=== PATIENT | female | born 1935 | race Caucasian/White ===

== ENCOUNTER → 2017-05-29 | Outpatient (CLI) | payer MEDICARE, MEDICAID ==
--- NOTE | 2017-05-29 19:59 | Diagnostic Imaging Report ---
Bilateral diagnostic mammogram. The current study was also evaluated with a Computer Aided Detection (CAD) system. Comparison with 05/09/16. INDICATION: History of breast cancer status post lumpectomy in the left breast FINDINGS: The breasts are composed of heterogeneously dense parenchyma which may decrease mammographic sensitivity. There are benign-appearing and vascular calcifications seen. Post therapeutic changes in the left breast are seen with scarring similar to prior exams. Allowing for technique and positional differences, no suspicious change is seen. IMPRESSION: No significant change. ACR BI-RADS Category 2: Benign findings. Result letter will be mailed to the patient. Note: At least 10% of breast cancer is not imaged by mammography. Dictated by: Dictated on workstation # [id number]
== END ==
LOC: RAD 08:32
PROVIDERS: ATTEND Internal Medicine Hematology & Oncology
DX: Z85.3 Personal history of malignant neoplasm of breast (principal); Z98.890 Other specified postprocedural states
CPT/HCPCS: 77066

== ENCOUNTER 2017-07-16 11:40 | Emergency (ER) | payer MEDICARE, MEDICAID ==
[~2017-07-16] VITALS: Ht 149.9 cm; Wt 68.0 kg
--- OUTSIDE RECORDS SUMMARY | 2017-07-16 12:25 | XMS REPORT | Continuity of Care Document ---
Author Author [facility] Organization [facility] Address Unknown Phone Unavailable Allergies Medications Problems Date Dx Coded Attending Type Code Diagnosis Diagnosed By 05/09/2016 EDITH FONSECA MD Ot Z85.3 PERSONAL HISTORY OF MALIGNANT NEOPLASM O 05/12/2016 EDITH FONSECA MD Ot Z08 ENCNTR FOR FOLLOW-UP EXAM AFTER TRTMT FO 05/12/2016 EDITH FONSECA MD Ot Z85.3 PERSONAL HISTORY OF MALIGNANT NEOPLASM O 05/13/2016 EDITH FONSECA MD Ot Z08 ENCNTR FOR FOLLOW-UP EXAM AFTER TRTMT FO 05/13/2016 EDITH FONSECA MD Ot Z85.3 PERSONAL HISTORY OF MALIGNANT NEOPLASM O 05/29/2016 EDITH FONSECA MD Ot Z08 ENCNTR FOR FOLLOW-UP EXAM AFTER TRTMT FO 05/29/2016 EDITH FONSECA MD Ot Z85.3 PERSONAL HISTORY OF MALIGNANT NEOPLASM O 06/06/2016 EDITH FONSECA MD E Ot Z08 ENCNTR FOR FOLLOW-UP EXAM AFTER TRTMT FO 06/06/2016 EDITH FONSECA MD Ot Z85.3 PERSONAL HISTORY OF MALIGNANT NEOPLASM O 05/29/2017 Ot 793.82 INCONCLUSIVE MAMMOGRAM 05/29/2017 Ot V10.3 HX OF BREAST MALIGNANCY 05/29/2017 Ot V76.11 SCRN MAMMO-HIGH RISK PT, MALIGNANT NEOPL 05/29/2017 EDITH FONSECA MD Ot V10.3 HX OF BREAST MALIGNANCY 05/29/2017 EDITH FONSECA MD E Ot V76.11 SCRN MAMMO-HIGH RISK PT, MALIGNANT NEOPL 05/29/2017 EDITH FONSECA MD E Ot Z08 ENCNTR FOR FOLLOW-UP EXAM AFTER TRTMT FO 05/29/2017 EDITH FONSECA MD Ot Z85.3 PERSONAL HISTORY OF MALIGNANT NEOPLASM O 05/29/2017 EDITH FONSECA MD Ot Z85.3 PERSONAL HISTORY OF MALIGNANT NEOPLASM O 05/29/2017 EDITH FONSECA MD Ot Z85.3 PERSONAL HISTORY OF MALIGNANT NEOPLASM O 05/29/2017 EDITH FONSECA MD Ot Z85.3 PERSONAL HISTORY OF MALIGNANT NEOPLASM O 06/19/2017 EDITH FONSECA MD Ot Z85.3 PERSONAL HISTORY OF MALIGNANT NEOPLASM O 06/19/2017 EDITH FONSECA MD Ot Z98.890 OTHER SPECIFIED POSTPROCEDURAL STATES 07/01/2017 EDITH FONSECA MD, Ot Z85.3 PERSONAL HISTORY OF MALIGNANT NEOPLASM O 07/01/2017 EDITH FONSECA MD Ot Z98.890 OTHER SPECIFIED POSTPROCEDURAL STATES Procedures Results Encounters ACCT No. Visit Date/Time Discharge Status Pt. Type Provider Facility Loc./Unit Complaint [id number] 03/23/2014 10:09:00 2013 23:59:59 CLS Outpatient EDITH FONSECA MD [facility] RAD SCREENING [id number] 05/29/2017 08:32:00 ACT Outpatient EDITH FONSECA MD [facility] RAD HX OF BREAST CA Z85.3 [id number] 05/09/2016 09:06:00 ACT Outpatient EDITH FONSECA MD [facility] RAD HX OF BREAST CANCER [id number] 03/15/2013 10:05:00 Document Registration
[2017-07-16 13:09] LABS: BASOPHILS # (AUTO) 0.1 10^3/uL (0.0-0.1); BASOPHILS % (AUTO) 1 % (0-10); EOSINOPHILS # (AUTO) 0.5 10^3/uL (0.0-0.3); EOSINOPHILS % (AUTO) 5 % (0-10); LYMPHOCYTES # (AUTO) 1.6 X 10^3 (1.0-4.0); LYMPHOCYTES % (AUTO) 17 % (12-44); MEAN CORPUSCULAR HEMOGLOBIN 31 PG (25-34); MEAN CORPUSCULAR HGB CONC 34 G/DL (32-36); MEAN CORPUSCULAR VOLUME 91 FL (80-99); MEAN PLATELET VOLUME 11.2 FL (7.4-10.4); MONOCYTES # (AUTO) 0.8 X 10^3 (0.0-1.0); MONOCYTES % (AUTO) 9 % (0-12); NEUTROPHILS # (AUTO) 6.4 X 10^3 (1.8-7.8); NEUTROPHILS % (AUTO) 69 % (42-75); PLATELET COUNT 256 10^3/uL (130-400); RED BLOOD COUNT 4.82 10^6/uL (4.35-5.85); RED CELL DISTRIBUTION WIDTH 12.5 % (10.0-14.5); WHITE BLOOD COUNT 9.3 10^3/uL (4.3-11.0)
[2017-07-16 13:23] LABS: ALANINE AMINOTRANSFERASE 30 U/L (0-55); ALBUMIN 3.9 GM/DL (3.2-4.5); ANION GAP 10 MMOL/L (5-14); ASPARTATE AMINO TRANSFERASE 32 U/L (5-34); BILIRUBIN,TOTAL 0.4 MG/DL (0.1-1.0); BLOOD UREA NITROGEN 10 MG/DL (7-18); BUN/CREATININE RATIO 12; CALCIUM 9.4 MG/DL (8.5-10.1); CARBON DIOXIDE 27 MMOL/L (21-32); CHLORIDE 105 MMOL/L (98-107); CREATININE SERUM 0.83 MG/DL (0.60-1.30); GFR ESTIMATED > 60; GLUCOSE 102 MG/DL (70-105); POTASSIUM 4.4 MMOL/L (3.6-5.0); SODIUM 142 MMOL/L (135-145); TOTAL PROTEIN 6.6 GM/DL (6.4-8.2)
[2017-07-16 13:26] LABS: BILIRUBIN,URINE NEGATIVE (NEGATIVE); KETONES,URINE NEGATIVE (NEGATIVE); LEUKOCYTE ESTERASE ,URINE NEGATIVE (NEGATIVE); NITRITE,URINE NEGATIVE (NEGATIVE); PH,URINE 7 (5-9); PROTEIN,URINE NEGATIVE (NEGATIVE); UROBILINOGEN,URINE NORMAL (NORMAL)
--- NOTE | 2017-07-16 13:45 | ED Neurological Problem ---
General Chief Complaint: Neurological Problems Stated Complaint: L SIDED WEAKNESS Nursing Triage Note: TO ED PER [facility] FROM HOME PMH OF CVA L SIDE. PATIENT REPORTS SHE WOKE UP YESTERDAY AM AND FELT LIKE SHE HAD INCREASE WEAKNESS ON L SIDE. Nursing Sepsis Screen: No Definite Risk Source: patient, family Exam Limitations: no limitations History of Present Illness Time seen by provider: 13:25 Initial Comments The patient is an 82-year-old white female brought to the emergency room by her granddaughter. The patient reports that she had had a stroke with left-sided involvement some 17-20 years ago. She recovered in a way that allowed her to function independently. She states that she awakened yesterday morning and seemed to have difficulty using her left side. Her granddaughter reports that on Thursday the day prior she had taken her to her yearly cardiology appointment with Dr. Yaa Wallace. She complained of considerable fatigue. On the way home they stopped at a [employer] restaurant in [place] and she observed her to appear to demonstrate difficulty greater than her usual on the left side plus greater fatigability. Yesterday this was clearly evident. There is been no speech abnormality. She is right-handed. Timing/Duration: other (2 days) Severity: mild, moderate Associated Symptoms: weakness Allergies and Home Medications Allergies Coded Allergies: No Known Drug Allergies (Unverified , 07/16/17) Constitutional: see HPI Eyes: No Symptoms Reported Ears, Nose, Mouth, Throat: no symptoms reported Respiratory: no symptoms reported Cardiovascular: no symptoms reported Gastrointestinal: no symptoms reported Genitourinary: no symptoms reported Musculoskeletal: muscle weakness (left-sided) Skin: no symptoms reported Psychiatric/Neurological: No Symptoms Reported Endocrine: No Symptoms Reported Hematologic/Lymphatic: No Symptoms Reported Past Fsyvejn-Uwotcv-Rlsafy Hx Patient Social History Alcohol Use: Denies Use Recreational Drug Use: No Smoking Status: Never a Smoker Recent Foreign Travel: No Contact w/Someone Who Travel: No Recent Infectious Disease Expo: No Surgeries Surgeries: Appendectomy, Breast, Gallbladder, Hysterectomy Respiratory Respiratory Disorders: COPD Cardiovascular Cardiac Disorders: High Cholesterol, Hypertension Neurological Neurological Disorders: Stroke Reproductive System [employer] History: Hysterectomy Genitourinary Genitourinary Disorders: UTI-Chronic Musculoskeletal Musculoskeletal Disorders: Arthritis, Chronic Back Pain Endocrine Endocrine Disorders: Diabetes, Non-Insulin dep HEENT HEENT Disorders: Macular Degeneration Cancer Cancer: Breast Psychosocial Behavioral Health Disorders: Anxiety Physical Exam Vital Signs Vital Sign - Last 12Hours 07/16/17 11:40 Temp 98.0 Pulse 51 Resp 18 B/P (MAP) 192/72 Pulse Ox 95 O2 Delivery Room Air Capillary Refill : Less Than 3 Seconds General Appearance: WD/WN, no apparent distress HEENT: normal ENT inspection Neck: full range of motion Respiratory: chest non-tender, lungs clear, normal breath sounds, no respiratory distress, no accessory muscle use, respiratory distress Cardiovascular: bradycardia, systolic murmur (left sternal border grade 2) Gastrointestinal: normal bowel sounds, non tender, soft, no organomegaly, no pulsatile mass Back: normal inspection, no CVA tenderness, no vertebral tenderness, CVA tenderness (R), CVA tenderness (L) Neurologic/Psychiatric: chiller hand II-XII nml as tested, alert, normal mood/affect, oriented x 3 Coordination/Gait: normal finger to nose (right) Skin: normal color, warm/dry Lymphatic: no adenopathy Comments The patient exhibited normal speech. There was no facial droop. She was able to furrow the brow equally and bilaterally. She was able to blink bilaterally. Foreign Language Professor in the right hand was 2+. Foreign Language Professor in the left was quite minimal. Straight leg lift on the right was normal. She was able to lift the right leg to 60 off the bed easily. She was able to lift the left leg off the bed 10 inches and with difficulty. She appeared to carry the left in external rotation but was able to rotate it medially on command. Progress/Results/Core Measures Results/Orders Lab Results Laboratory Tests Test 07/16/17 11:54 07/16/17 12:39 Range/Units White Blood Count 9.3 4.3-11.0 10^3/uL Red Blood Count 4.82 4.35-5.85 10^6/uL Hemoglobin 14.8 11.5-16.0 G/DL Hematocrit 44 35-52 % Mean Corpuscular Volume 91 80-99 FL Mean Corpuscular Hemoglobin 31 25-34 PG Mean Corpuscular Hemoglobin Concent 34 32-36 G/DL Red Cell Distribution Width 12.5 10.0-14.5 % Platelet Count 256 130-400 10^3/uL Mean Platelet Volume 11.2 H 7.4-10.4 FL Neutrophils (%) (Auto) 69 42-75 % Lymphocytes (%) (Auto) 17 12-44 % Monocytes (%) (Auto) 9 0-12 % Eosinophils (%) (Auto) 5 0-10 % Basophils (%) (Auto) 1 0-10 % Neutrophils # (Auto) 6.4 1.8-7.8 X 10^3 Lymphocytes # (Auto) 1.6 1.0-4.0 X 10^3 Monocytes # (Auto) 0.8 0.0-1.0 X 10^3 Eosinophils # (Auto) 0.5 H 0.0-0.3 10^3/uL Basophils # (Auto) 0.1 0.0-0.1 10^3/uL Sodium Level 142 135-145 MMOL/L Potassium Level 4.4 3.6-5.0 MMOL/L Chloride Level 105 98-107 MMOL/L Carbon Dioxide Level 27 21-32 MMOL/L Anion Gap 10 5-14 MMOL/L Blood Urea Nitrogen 10 7-18 MG/DL Creatinine 0.83 0.60-1.30 MG/DL Estimat Glomerular Filtration Rate > 60 BUN/Creatinine Ratio 12 Glucose Level 102 70-105 MG/DL Calcium Level 9.4 8.5-10.1 MG/DL Total Bilirubin 0.4 0.1-1.0 MG/DL Aspartate Amino Transf (AST/SGOT) 32 5-34 U/L Alanine Aminotransferase (ALT/SGPT) 30 0-55 U/L Alkaline Phosphatase 68 40-136 U/L Total Protein 6.6 6.4-8.2 GM/DL Albumin 3.9 3.2-4.5 GM/DL Urine Color YELLOW Urine Clarity SLIGHTLY CLOUDY Urine pH 7 5-9 Urine Specific [place] 1.010 L 1.016-1.022 Urine Protein NEGATIVE NEGATIVE Urine Glucose (UA) NEGATIVE NEGATIVE Urine Ketones NEGATIVE NEGATIVE Urine Nitrite NEGATIVE NEGATIVE Urine Bilirubin NEGATIVE NEGATIVE Urine Urobilinogen NORMAL NORMAL MG/DL Urine Leukocyte Esterase NEGATIVE NEGATIVE Urine RBC (Auto) NEGATIVE NEGATIVE Urine RBC NONE /HPF Urine WBC NONE /HPF Urine Squamous Epithelial Cells 2-5 /HPF Urine Crystals NONE /LPF Urine Bacteria NEGATIVE /HPF Urine Casts NONE /LPF Urine Mucus NEGATIVE /LPF Urine Culture Indicated NO My Orders Orders - TOÑO JOHNSON MD Cbc With Automated Diff (07/16/17 13:02) Comprehensive Metabolic Panel (07/16/17 13:02) Ua Culture If Indicated (07/16/17 13:02) Ct Head Wo (07/16/17 13:22) Mri Brain W/Wo Contrast (07/16/17 14:25) Gadobutrol Inj (Radiology) (Gadavist Inj (07/16/17 15:15) Medications Given in ED Current Medications Medications Dose Ordered Sig/Bradford Route Start Time Stop Time Status Last Admin Dose Admin Gadobutrol 7.5 mmol ONCE ONCE IV 07/16/17 15:15 07/16/17 15:16 DC 07/16/17 15:18 6 MMOL Vital Signs/I&O Vital Sign - Last 12Hours 07/16/17 11:40 Temp 98.0 Pulse 51 Resp 18 B/P (MAP) 192/72 Pulse Ox 95 O2 Delivery Room Air Blood Pressure Mean: 112 Departure Impression Impression: Primary Impression: increased left-sided weakness/old CVA in this distribution Disposition: 01 HOME, SELF-CARE Condition: Stable/Unchanged Departure-Patient Inst. Decision time for Depature: 16:02 Referrals: NO,LOCAL PHYSICIAN (PCP) Primary Care Physician JADEN ALANIS (Family) Primary Care Physician Patient Instructions: Stroke (DC) Add. Discharge Instructions: All discharge instructions reviewed with patient and/or family. Voiced understanding. Your x-ray studies showed year old stroke. There was a possibility of a very small abnormality in the same distribution which appeared new. These findings were discussed with the patient and her granddaughter. It would appear reasonable that a course of outpatient physical therapy might be of benefit here. They are agreeable and transportation could be arranged by the family TOÑO JOHNSON MD Jul 16, 2017 13:44
--- NOTE | 2017-07-16 13:48 | Diagnostic Imaging Report ---
PROCEDURE: CT head without contrast. TECHNIQUE: Multiple contiguous axial images were obtained through the brain without the use of intravenous contrast. INDICATION: Dizziness, left-sided weakness. I have no previous. Patient reports a remote stroke. FINDINGS: There is an old infarct in the right basal ganglia with focal encephalomalacia. There is chronic periventricular white matter small-vessel sequelae and chronic cerebrocortical atrophy. There was no sulcal effacement and no findings suggestive of CT evidence of focal or generalized edema. No evidence for elevated intracranial pressures and there is no hemorrhage. Orbits, sinuses, and calvarium nonacute. IMPRESSION: Old right basal ganglial infarct, chronic white matter small-vessel sequelae, and atrophy. No hemorrhage or acute-appearing abnormality. In light of the extent of chronic findings, if there is persistent clinical suspicion for an acute or an evolving infarct, consider CT short-term followup versus correlative MRI depending upon the index of suspicion. Again an acute-appearing abnormality is not appreciable at this exam with no priors for comparison. Dictated by: Dictated on workstation # [id number]
[2017-07-16] MEDS ORDERED: GADOBUTROL 7.5 MMOL/7.5 ML (GADAVIST) VIAL IV ONE (15:15)
--- NOTE | 2017-07-16 16:03 | Diagnostic Imaging Report ---
CLINICAL INDICATION: Patient has left side of weakness since Thursday and does have a history of an old stroke. EXAM: MRI of the brain performed without and with 6 cc of Gadavist IV contrast. Sequences include axial DWI, ADC map, coronal gradient echo, axial T2, axial FLAIR, axial T1, axial T1 post IV contrast, coronal T1 fat-sat post IV contrast, and sagittal T1 post IV contrast. COMPARISON: Head CT without contrast dated 07/16/2017. FINDINGS: There is a 12 mm x 4 mm linear area of elevated DWI signal and hypointense and isointense ADC map signal with minimal high T2 signal seen in the right side of the raheem. There is no associated enhancement in the region. This may represent area of acute cerebral infarct versus artifact. There is no other areas concerning for acute cerebral infarct. There is a small chronic infarct involving the right basal ganglia region and thomas radiata. There is focal, patchy and confluent areas of high T2 signal white matter changes throughout both cerebral hemispheres, periventricular regions, and raheem, likely related to chronic small vessel ischemic disease and leukoaraiosis. There is no abnormal IV contrast enhancement seen on this exam. There is no hydrocephalus, intracranial hemorrhage, or brain herniation. There is loss of flow void signal and increased T2 signal within the intradural portion of the right vertebral artery. Vascular occlusion or slow flow may be considered. The brain parenchymal volume appears appropriate for patient's age. Basal cisterns are unremarkable. The extracranial soft tissue, skull, and orbits are unremarkable. There is mild to moderate mucosal thickening in the ethmoid sinus. There is mild mucosal thickening involving frontal sinus, both maxillary sinuses, and sphenoid sinus. IMPRESSION: 1: There is a small area of elevated DWI signal and mixed ADC map signal in the right side of the raheem. There is minimal high T2 signal in the region. There is no associated IV contrast enhancement. This finding may represent an acute or early subacute infarct. Other consideration would include artifact. Followup MRI of the brain with and without IV contrast in two months is suggested to evaluate for interval evolution of this finding. 2: There is abnormal signal with no flow void involving the intradural right vertebral artery. Atherosclerotic disease versus vascular occlusion or slow flow within the right vertebral artery could be considered. Comparison with prior MRI of the brain would help better evaluate. If none are available, then CT angiogram of the head and neck would help better evaluate. 3: Otherwise, there is no other concern for acute intracranial process. 4: There is chronic cerebral infarct in the right basal ganglia/thomas radiata region. 5: There is diffuse chronic small vessel ischemic disease and leukoaraiosis. Results of this report was discussed with Dr. Olu Walker via the telephone on 07/16/2017 at 1550 hours. Dictated by: Dictated on workstation # [id number]
[2017-07-16 16:24] VITALS: BP 164/69
== END 2017-07-16 16:28 | disposition home or self-care (01) ==
LOC: EDUNIT# 11:40 → ER 11:41
DX: I69.954 Hemiplegia and hemiparesis following unspecified cerebrovascular disease affecting left non-dominant side (principal); I10 Essential (primary) hypertension; E11.9 Type 2 diabetes mellitus without complications; J44.9 Chronic obstructive pulmonary disease, unspecified
CPT/HCPCS: 36415; 70450; 70553; 80053; 81000; 85025

== ENCOUNTER → 2017-07-27 | Outpatient (CLI) | payer MEDICARE, MEDICAID ==
--- NOTE | 2017-07-27 12:14 | Diagnostic Imaging Report ---
INDICATION: Dysphagia. The procedure was performed in conjunction with a member of the department of speech pathology. Patient swallowed thin and thick barium and semisolid and solid foods mixed with barium paste. Study was recorded on videotape. FINDINGS: There is aspiration of honey consistency barium. This improved with chin tuck maneuvers. Thicker barium was swallowed with slightly better success. IMPRESSION: Aspiration on several swallows with honey consistency barium. This did improve with chin tuck. Please correlate with formal speech pathology report. Dictated by: Dictated on workstation # [id number]
== END ==
LOC: RAD 08:30
PROVIDERS: ATTEND Physician Assistant Medical
DX: R13.12 Dysphagia, oropharyngeal phase (principal); R47.9 Unspecified speech disturbances
CPT/HCPCS: 74230

== ENCOUNTER → 2017-07-31 | Outpatient (CLI) | payer MEDICARE, MEDICAID ==
[~2017-07-31] MED LIST: CATHETER FLUSH 10 ML SYR IV PRN; IOHEXOL 350 MG/ML 100 ML (OMNIPAQUE 350) VIAL IV ONE; NS 100 ML (IVPB) BAG IV ONE
--- NOTE | 2017-07-31 10:50 | Diagnostic Imaging Report ---
Clinical indication: Patient with questionable stroke. Patient has left arm and leg paralysis. Exams: 1: Head CT without and with IV contrast. 2: CT angiogram of the head and neck performed with 100 cc of Omnipaque 350 IV contrast. Sagittal and coronal MIP reformations were created for better visualization of vascular anatomy. Comparison: MRI of the brain performed without and with IV contrast and head CT without contrast dated 07/16/2017. Findings: HEAD CT: Skull streak artifact obscures portions of the brainstem, posterior fossa, portions of the brain and skull base. The previously seen area concerning for acute or early subacute infarct involving the right side of the raheem cannot be seen on this exam due to streak artifact. There is no abnormal IV contrast enhancement. There are stable small chronic cerebral infarcts involving the right basal ganglia region, and right internal capsule region. There is stable patchy and confluent areas of low-attenuation white matter changes throughout both cerebral hemispheres, likely related to chronic small vessel ischemic disease and leukoaraiosis (right side more than the left). There is no evidence of acute intracranial hemorrhage, brain herniation, or hydrocephalus. Basal cisterns are unremarkable. There is no hydrocephalus. The brain parenchymal volume stable and appropriate for patient's age. Extracranial soft tissue, skull, and orbits are unremarkable. There is at least moderate mucosal thickening in the ethmoid sinus. There is a small air-fluid level and mucosal thickening in the left maxillary sinus. Temporal bone structures show no significant abnormality. CT ANGIOGRAM: Of note, the aortic arch is not imaged on this exam and cannot be evaluated. The origins and proximal aspects of the right brachiocephalic artery, left common carotid artery, and left subclavian artery are not visualized and cannot be evaluated. There is atherosclerotic disease within the proximal left subclavian artery causing mild stenosis. There is incompletely imaged atherosclerotic disease involving the proximal aspect of the left common carotid artery which shows mild stenosis. There is atherosclerotic disease of the left ICA bulb and left ECA which shows no significant stenosis. Remainder of the cervical left ICA is patent. The visualized portion of the right brachiocephalic artery is patent. The right subclavian artery is patent. The right common carotid artery shows atherosclerotic disease distally with less than 50% stenosis. There is dense atherosclerotic disease involving the origin of the right ECA which shows less than 50% stenosis. There is roughly 50-60% stenosis involving the origin of the cervical right ICA. Remainder of the cervical right ICA and right ECA regions are patent. There is atherosclerotic disease of the origin of the cervical right vertebral artery which obscures the region. There is at least mild narrowing in the region. The remainder of the cervical right vertebral artery is patent. The cervical left vertebral artery is patent. Relatively dominant left cervical vertebral artery is seen. There is atherosclerotic disease and vascular irregularity involving the intradural left vertebral artery with roughly 50-60% stenosis. There is concern for occlusion of the post PICA intradural right vertebral artery. There is a small contrast opacified vascular stump in the region of the proximal basilar which is seen on series 7, image 21, and series 11, image 167. This is suspected to represent retrograde flow within the occluded post PICA intradural right vertebral artery. There is normal appearing contrast within the intradural pre-PICA vertebral artery. The bilateral PICA are patent. The remainder of the posterior circulation is patent. There is atherosclerotic disease involving the bilateral cavernous carotid arteries. There is at least moderate narrowing in the paraclinoid left ICA region. There is at least moderate stenosis involving the cavernous portion of the right ICA. The remainder of the anterior circulation of the the [place] is patent. The ACAs and bilateral MCAs are patent. Visualized portion of the dural venous sinuses are patent and unremarkable. There is a 10 mm low-density nodule within the left thyroid gland. The visualized upper lung lawrence are clear. The remainder of the neck soft tissue structures are unremarkable. There is no significant lymphadenopathy. IMPRESSION: 1: Of note, the aortic arch and proximal great vessels are not imaged and cannot be completely evaluated, limiting this exam. 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 The pre-PICA intradural right vertebral artery is patent and the right PICA is patent. 3: There is roughly 50-60% stenosis of the intradural left vertebral artery. 4: There is roughly 50-60% stenosis of the origin of the cervical right ICA. 5: There is at least moderate stenosis involving the cavernous right ICA and paraclinoid left ICA. 6: Streak artifact obscures the posterior fossa and brainstem. The area concerning for an acute or subacute infarct involving the right of midline raheem cannot be evaluated on this exam. 7: Otherwise, stable CT scan of the brain with right cerebral hemisphere chronic cerebral infarct and chronic small vessel ischemic disease. 8: There is a left thyroid gland nodule. Thyroid ultrasound would better evaluate. Results of this report were discussed with EDITH Palomino via the telephone on 07/31/2017 at 1030 hrs. Dictated by: Dictated on workstation # [id number]
== END ==
LOC: RAD 08:53
PROVIDERS: ATTEND Physician Assistant Medical
DX: I63.211 Cerebral infarction due to unspecified occlusion or stenosis of right vertebral artery (principal); I65.21 Occlusion and stenosis of right carotid artery; E04.1 Nontoxic single thyroid nodule
CPT/HCPCS: 70496; 70498

== ENCOUNTER 2017-08-18 14:01 | Outpatient (RCR) | payer MEDICARE, MEDICAID | END 2017-08-29 | disposition home or self-care (01) | PROVIDERS: ATTEND Physician Assistant Medical | DX: I69.354 Hemiplegia and hemiparesis following cerebral infarction affecting left non-dominant side; E11.9 Type 2 diabetes mellitus without complications; Z95.5 Presence of coronary angioplasty implant and graft; I10 Essential (primary) hypertension ==

== ENCOUNTER 2017-09-17 14:51 | Outpatient (RCR) | payer MEDICARE, MEDICAID | END 2017-09-17 16:53 | disposition home or self-care (01) | PROVIDERS: ATTEND Physician Assistant Medical | DX: I69.354 Hemiplegia and hemiparesis following cerebral infarction affecting left non-dominant side (principal); I10 Essential (primary) hypertension; E11.9 Type 2 diabetes mellitus without complications; Z95.5 Presence of coronary angioplasty implant and graft ==

== ENCOUNTER → 2018-09-10 | Outpatient (CLI) | payer MEDICARE, MEDICAID | LOC: CARD 09:48 | PROVIDERS: ATTEND Internal Medicine Cardiovascular Disease | DX: I25.10 Atherosclerotic heart disease of native coronary artery without angina pectoris (principal); I10 Essential (primary) hypertension; I08.3 Combined rheumatic disorders of mitral, aortic and tricuspid valves | CPT/HCPCS: 93306 ==